=== PATIENT | female | born 1940 | race Caucasian/White ===

== ENCOUNTER 2018-11-22 06:42 | Emergency (ER) | payer MEDICARE ==
[~2018-11-22] VITALS: Ht 157.5 cm; Wt 71.7 kg
[~2018-11-22 06:42] MED LIST: ASPI-1169 PO; CLOP75TA15 PO; FLUT12AE7 IH; FORM12CA IH; IRBE150T28 PO; Nitroglycerin SL; RABE20TA18 PO; SIMV20TA2 PO
--- NOTE | 2018-11-22 06:46 | NUR ---
TECH AT BEDSIDE FOR EKG
--- NOTE | 2018-11-22 06:47 | NUR ---
PT [id number] C/O "FEELING ABD PAIN X1 YEAR. WORSENING [id number]. FEELING NAUSEOUS"-SOB NOTED. AOX4. RESP EVEN AND UNLABORED. VSS. FAMILY AT BEDSIDE. PT ON MONITOR IN BED 9. WILL CONTINUE TO MONITOR.
[2018-11-22] MEDS ORDERED: IRBE150T28 PO (06:53)
[2018-11-22] MEDS ORDERED: METO-356 PO (06:53)
[2018-11-22] MEDS ORDERED: AMLO2.5T4 PO (06:53)
--- NOTE | 2018-11-22 06:59 | NUR ---
RADIOLOGY AT BEDSIDE FOR XRAY
[2018-11-22] MEDS ORDERED: MORPHINE SULFATE INJ 2 MG/ML DISP.SYRIN IV ONE (07:00)
[2018-11-22] MEDS ORDERED: ONDANSETRON HCL/PF - ER 4 MG/2 ML VIAL IV ONE (07:00)
[2018-11-22] MEDS ORDERED: ONDANSETRON HCL/PF 4 MG/2 ML VIAL ONE (07:01)
[2018-11-22] MEDS ORDERED: MORPHINE SULFATE INJ 2 MG/ML DISP.SYRIN ONE (07:02)
--- NOTE | 2018-11-22 07:20 | NUR ---
REPORT GIVEN TO SHIVA HINDS FOR ZANE
[2018-11-22 07:30] LABS: BASOPHILS % (AUTO) 0.6 % (0.0-2.0); CALCIUM, SERUM 8.2 mg/dL (8.5-10.1); CARBON DIOXIDE 25 mmol/L (21-32); CHLORIDE 109 mmol/L (98-107); CREATININE 1.6 mg/dL (0.6-1.3); EOSINOPHILS % (AUTO) 2.7 % (0.0-6.0); GLUCOSE 102 mg/dL (74-106); HEMATOCRIT 30 % (33-45); HEMOGLOBIN 9.9 g/dL (11.5-14.8); LYMPHOCYTES % (AUTO) 15.1 % (20.0-44.0); MEAN CORPUSCULAR HGB CONC 33 g/dl (31.0-36.0); MEAN CORPUSCULAR VOLUME 88 fL (82-100); MONOCYTES # (AUTO) 0.4 /CMM (0.1-1.30); MONOCYTES % (AUTO) 6.8 % (2.0-12.0); NEUTROPHILS # (AUTO) 4.8 /CMM (1.8-8.9); NEUTROPHILS % (AUTO) 74.8 % (43.0-81.0); PLATELET COUNT (AUTO) 203 /CMM (150-450); POTASSIUM 4.3 mmol/L (3.5-5.1); RED BLOOD CELL COUNT(AUTO) 3.39 MIL/uL (4.0-5.2); SODIUM SERUM 141 mmol/L (136-145); UREA NITROGEN, BLOOD 33 mg/dL (7-18); WHITE BLOOD COUNT (AUTO) 6.5 K/uL (4.3-11.0)
[2018-11-22] MEDS ORDERED: METO25TA6 PO (08:22)
[2018-11-22] MEDS ORDERED: RABE20TA18 PO (08:22)
--- NOTE | 2018-11-22 08:44 | NUR ---
[facility] paged
--- NOTE | 2018-11-22 09:51 | NUR ---
PATIENT AND DAUGHTER STATED THEY WANT TO LEAVE AMA, EXPLAINED RISKS, BENEFITS AND ALTERNATIVES, STILL WANTS TO LEAVE AMA. PIV REMOVED, COPIES OF RESULTS GIVEN TO PATIENT REQUESTED. DR. BOBO AWARE. PATIENT SIGNED AMA FORM, ASSISTED TO WHEELCHAIR AND LEFT IN STABLE CONDITION.
[2018-11-22 09:56] VITALS: BP 143/65
== END 2018-11-22 09:58 | disposition left against medical advice (07) ==
LOC: ER 06:46
DX: R07.89 Other chest pain (principal); R10.13 Epigastric pain; I21.9 Acute myocardial infarction, unspecified; I10 Essential (primary) hypertension; F41.9 Anxiety disorder, unspecified; K21.9 Gastro-esophageal reflux disease without esophagitis; I45.10 Unspecified right bundle-branch block; Z98.890 Other specified postprocedural states; Z88.6 Allergy status to analgesic agent; Z79.82 Long term (current) use of aspirin; Z95.5 Presence of coronary angioplasty implant and graft
CPT/HCPCS: 36415; 71045; 80048; 84484; 85025; 93005 ×2; 96374; 96375; 99284; J2270; J2405

== ENCOUNTER 2024-08-29 08:28 | Inpatient (IN) | payer MEDICARE ==
[~2024-08-29] VITALS: Ht 157.5 cm; Wt 60.3 kg
[~2024-08-29 08:28] MED LIST changes: +AMLO2.5T4 PO; -FORM12CA IH; +METO25TA6 PO; -Nitroglycerin SL; -SIMV20TA2 PO
[2024-08-29 09:02] LABS: BASOPHILS % (AUTO) 0.5 % (0.0-2.0); EOSINOPHILS # (AUTO) 0.8 K/uL (0.0-0.7); EOSINOPHILS % (AUTO) 10.9 % (0.0-6.0); HEMATOCRIT 31 % (33-45); HEMOGLOBIN 10.3 g/dL (11.5-14.8); LYMPHOCYTES % (AUTO) 12.7 % (20.0-44.0); MEAN CORPUSCULAR HEMOGLOBIN 30 PG (26.0-33.0); MEAN CORPUSCULAR HGB CONC 34 g/dl (31.0-36.0); MEAN CORPUSCULAR VOLUME 90 fL (82-100); MONOCYTES # (AUTO) 0.6 K/uL (0.1-1.30); MONOCYTES % (AUTO) 7.3 % (2.0-12.0); NEUTROPHILS # (AUTO) 5.3 K/uL (1.8-8.9); NEUTROPHILS % (AUTO) 68.6 % (43.0-81.0); PLATELET COUNT (AUTO) 249 K/uL (150-450); RED BLOOD CELL COUNT(AUTO) 3.39 MIL/uL (4.0-5.2); RED CELL DISTRIBUTION WIDTH 13.8 % (11.5-15.0); WHITE BLOOD COUNT (AUTO) 7.7 K/uL (4.3-11.0)
[2024-08-29 09:12] LABS: CALCIUM, SERUM 8.4 mg/dL (8.5-10.1); CARBON DIOXIDE 23 mmol/L (21-32); CHLORIDE 109 mmol/L (98-107); CREATININE 2.7 mg/dL (0.6-1.3); GLUCOSE 127 mg/dL (74-106); POTASSIUM 4.3 mmol/L (3.5-5.1); SODIUM SERUM 143 mmol/L (136-145); UREA NITROGEN, BLOOD 59 mg/dL (7-18)
[2024-08-29 09:25] LABS: NT-PRO BNP 1892 pg/mL (0-125)
[2024-08-29] MEDS ORDERED: CARV6.252 PO (10:59)
[2024-08-29] MEDS ORDERED: CARV3.122 PO (10:59)
[2024-08-29] MEDS ORDERED: AMLO-212 PO (10:59)
[2024-08-29] MEDS ORDERED: FLUT200B IH (10:59)
[2024-08-29] MEDS ORDERED: ONDANSETRON HCL/PF 4 MG/2 ML VIAL ONE (11:09)
[2024-08-29] MEDS ORDERED: FAMOTIDINE/PF INJ 20 MG/2 ML VIAL IV ONE (11:09)
[2024-08-29] MEDS ORDERED: MORPHINE SULFATE INJ 2 MG/ML DISP.SYRIN ONE (11:09)
[2024-08-29] MEDS: MORPHINE SULFATE INJ 2 MG/ML DISP.SYRIN IV ONE (11:17)
[2024-08-29] MEDS: FAMOTIDINE/PF INJ 20 MG/2 ML VIAL IV ONE (11:18)
[2024-08-29] MEDS: ONDANSETRON HCL/PF 4 MG/2 ML VIAL IV ONE (11:18)
[2024-08-29] MEDS ORDERED: ACETAMINOPHEN 325 MG TABLET PO PRN (12:00)
[2024-08-29 13:19] LABS: INR 1.03 (0.91-1.10); PARTIAL THROMBOPLASTIN TIME 31.3 SEC (24.3-34.3); PROTHROMBIN TIME 10.9 SECS (9.2-11.1)
[2024-08-29] MEDS: IV NS 0.9% 1,000 ML IV PRN (13:54)
[2024-08-29] MEDS: ASPIRIN 81 MG TAB.CHEW PO SCH (13:55)
[2024-08-29] MEDS: ATORVASTATIN 10 MG TABLET PO SCH (13:55)
[2024-08-29 16:00] VITALS: BP 135/66; TEMP 98.1; O2SAT 96
[2024-08-29] MEDS: HEPARIN SODIUM, PORCINE 5000 UNITS/1 ML VIAL IV ONE (16:19)
[2024-08-29] MEDS: HEPARIN INFUSION/D5W 500 ML IV PRN (16:51)
[2024-08-29 20:00] VITALS: BP 131/89; TEMP 97.9; O2SAT 96
[2024-08-29 20:10] VITALS: BP 131/89; TEMP 97.9; O2SAT 99
[2024-08-29] MEDS ORDERED: HOME MED MISCELLANEOUS XX SCH (21:30)
[2024-08-29] MEDS: AMLODIPINE BESYLATE 5 MG TABLET PO SCH (22:10)
[2024-08-29] MEDS: CARVEDILOL 3.125 MG TABLET PO SCH (22:11)
[2024-08-30] VITALS: BP 139/60; TEMP 97.9; O2SAT 95
[2024-08-30 03:18] VITALS: BP 155/68; TEMP 98.2; O2SAT 98
[2024-08-30] MEDS: MORPHINE SULFATE INJ 2 MG/ML DISP.SYRIN IV PRN (03:32)
[2024-08-30] MEDS: ONDANSETRON HCL/PF 4 MG/2 ML VIAL IVP PRN (03:42)
[2024-08-30 07:32] LABS: INR 1.07 (0.91-1.10); PARTIAL THROMBOPLASTIN TIME 71.5 SEC (24.3-34.3); PROTHROMBIN TIME 11.3 SECS (9.2-11.1)
[2024-08-30 07:44] LABS: BASOPHILS # (AUTO) 0.1 K/uL (0.0-0.2); BASOPHILS % (AUTO) 0.8 % (0.0-2.0); EOSINOPHILS % (AUTO) 13.9 % (0.0-6.0); HEMATOCRIT 29 % (33-45); HEMOGLOBIN 9.9 g/dL (11.5-14.8); LYMPHOCYTES # (AUTO) 1.2 K/uL (0.8-4.8); MEAN CORPUSCULAR HEMOGLOBIN 31 PG (26.0-33.0); MEAN CORPUSCULAR HGB CONC 34 g/dl (31.0-36.0); MEAN CORPUSCULAR VOLUME 90 fL (82-100); MONOCYTES # (AUTO) 0.5 K/uL (0.1-1.30); MONOCYTES % (AUTO) 7.6 % (2.0-12.0); NEUTROPHILS # (AUTO) 4.4 K/uL (1.8-8.9); NEUTROPHILS % (AUTO) 60.7 % (43.0-81.0); PLATELET COUNT (AUTO) 221 K/uL (150-450); RED CELL DISTRIBUTION WIDTH 13.9 % (11.5-15.0); WHITE BLOOD COUNT (AUTO) 7.2 K/uL (4.3-11.0)
[2024-08-30 07:46] LABS: ALBUMIN 2.6 g/dL (3.4-5.0); CALCIUM, SERUM 7.7 mg/dL (8.5-10.1); CREATININE 2.5 mg/dL (0.6-1.3); POTASSIUM 4.5 mmol/L (3.5-5.1)
[2024-08-30 08:00] VITALS: BP 132/62; TEMP 98.1; O2SAT 95
[2024-08-30 08:04] LABS: BILIRUBIN,TOTAL 0.2 mg/dL (0.2-1.0); PHOSPHORUS 4.7 mg/dL (2.5-4.9); TOTAL PROTEIN, SERUM 5.7 g/dL (6.4-8.2)
[2024-08-30] MEDS: hydrALAZINE HCL 50 MG TABLET PO SCH (08:56)
[2024-08-30] MEDS: ACIPHEX PO SCH (08:57)
[2024-08-30] MEDS: CLOPIDOGREL BISULFATE 75 MG TABLET PO SCH (08:58)
[2024-08-30] MEDS ORDERED: CARVEDILOL 6.25 MG TABLET PO SCH (09:00)
[2024-08-30] MEDS: CARVEDILOL 12.5 MG TABLET PO SCH (09:15)
[2024-08-30 12:00] VITALS: BP 127/65; TEMP 97.9; O2SAT 95
[2024-08-30] MEDS: BUDESONIDE RESPULE INH 0.5 MG/2 ML AMPUL.NEB NEB SCH (15:50)
[2024-08-30 16:00] VITALS: BP 141/62; TEMP 98.1
[2024-08-30 16:36] LABS: APPEARANCE,URINE CLEAR (CLEAR); BILIRUBIN,URINE NEGATIVE (NEGATIVE); BLOOD, URINE NEGATIVE Ery/uL (NEGATIVE); COLOR,URINE YELLOW (YELLOW); KETONES,URINE NEGATIVE (NEGATIVE); LEUKOCYTE ESTERASE ,URINE TRACE (NEGATIVE); NITRITE, URINE NEGATIVE (NEGATIVE); PROTEIN,URINE TRACE mg/dl (NEGATIVE); UGLUCOSE NEGATIVE (NEGATIVE); UROBILINOGEN,URINE 0.2 EU/dL (0.2)
[2024-08-30 16:52] LABS: ADD URINE CULTURE YES; BACTERIA,URINE Few /HPF (None Seen); RBC,URINE 0-2 /HPF (0-2); SQUAMOUS EPITHELIAL CELL,UR Rare /HPF (None Seen); WBC,URINE 21-50 /HPF (0-3)
[2024-08-30 17:12] LABS: CREATININE, URINE 75.5 MG/DL (30.0-125.0)
[2024-08-30] MEDS: CARVEDILOL 6.25 MG TABLET PO SCH (17:13)
[2024-08-30] MEDS: CEFTRIAXONE 1 G in IV D5W 50 ML IV SCH (18:19)
[2024-08-30 19:05] LABS: EOSINOPHIL,URINE Rare
[2024-08-30 20:00] VITALS: BP 130/71; TEMP 98.2; O2SAT 99
[2024-08-31] VITALS: BP 139/66; TEMP 98.1; O2SAT 98
[2024-08-31 04:00] VITALS: BP 144/59; TEMP 97.5; O2SAT 99
[2024-08-31 07:23] LABS: BASOPHILS % (AUTO) 0.5 % (0.0-2.0); EOSINOPHILS # (AUTO) 0.9 K/uL (0.0-0.7); EOSINOPHILS % (AUTO) 12.8 % (0.0-6.0); HEMATOCRIT 30 % (33-45); HEMOGLOBIN 9.8 g/dL (11.5-14.8); LYMPHOCYTES # (AUTO) 1.1 K/uL (0.8-4.8); LYMPHOCYTES % (AUTO) 15.6 % (20.0-44.0); MEAN CORPUSCULAR HEMOGLOBIN 30 PG (26.0-33.0); MEAN CORPUSCULAR HGB CONC 33 g/dl (31.0-36.0); MEAN CORPUSCULAR VOLUME 91 fL (82-100); MONOCYTES # (AUTO) 0.6 K/uL (0.1-1.30); MONOCYTES % (AUTO) 7.9 % (2.0-12.0); NEUTROPHILS # (AUTO) 4.6 K/uL (1.8-8.9); NEUTROPHILS % (AUTO) 63.2 % (43.0-81.0); PLATELET COUNT (AUTO) 226 K/uL (150-450); RED BLOOD CELL COUNT(AUTO) 3.26 MIL/uL (4.0-5.2); WHITE BLOOD COUNT (AUTO) 7.2 K/uL (4.3-11.0)
[2024-08-31 07:43] LABS: ALBUMIN 2.7 g/dL (3.4-5.0); BILIRUBIN,TOTAL 0.2 mg/dL (0.2-1.0); CALCIUM, SERUM 7.8 mg/dL (8.5-10.1); CREATININE 2.4 mg/dL (0.6-1.3); MAGNESIUM 1.9 mg/dL (1.8-2.4); PHOSPHORUS 4.8 mg/dL (2.5-4.9); POTASSIUM 4.5 mmol/L (3.5-5.1)
[2024-08-31 08:00] VITALS: BP 131/86; TEMP 98; O2SAT 99
[2024-08-31 12:00] VITALS: BP 143/72; TEMP 98.2; O2SAT 94
[2024-09-02 07:11] LABS: PTH, INTACT 95 pg/mL (15-65)
[2024-09-03 14:10] LABS: *SPE ALBUMIN 2.7 g/dL (2.9-4.4); *SPE ALPHA-1-GLOBULIN 0.3 g/dL (0.0-0.4); *SPE ALPHA-2-GLOBULIN 0.9 g/dL (0.4-1.0); *SPE BETA GLOBULIN 0.7 g/dL (0.7-1.3); *SPE GLOBULIN, TOTAL 2.8 g/dL (2.2-3.9); *SPE M-SPIKE Not Observed g/dL (Not Observed); *SPE PROTEIN TOTAL 5.5 g/dL (6.0-8.5); *SPEGAMMA GLOBULIN 0.9 g/dL (0.4-1.8)
== END 2024-08-31 14:00 | disposition left against medical advice (07) | DRG 280 ==
LOC: ER 08:41 → TELE 11:38
PROVIDERS: ADMIT Nurse Practitioner Acute Care; ATTEND Nurse Practitioner Acute Care
DX: I21.4 Non-ST elevation (NSTEMI) myocardial infarction (principal); N17.0 Acute kidney failure with tubular necrosis; N18.4 Chronic kidney disease, stage 4 (severe); J98.11 Atelectasis; D68.69 Other thrombophilia; I25.10 Atherosclerotic heart disease of native coronary artery without angina pectoris; I12.9 Hypertensive chronic kidney disease with stage 1 through stage 4 chronic kidney disease, or unspecified chronic kidney disease; K21.9 Gastro-esophageal reflux disease without esophagitis; Z95.5 Presence of coronary angioplasty implant and graft; E78.5 Hyperlipidemia, unspecified; E66.9 Obesity, unspecified; F41.9 Anxiety disorder, unspecified; D64.9 Anemia, unspecified; Z99.3 Dependence on wheelchair; E83.9 Disorder of mineral metabolism, unspecified; I25.2 Old myocardial infarction; J98.4 Other disorders of lung; R63.4 Abnormal weight loss; Z68.24 Body mass index [BMI] 24.0-24.9, adult; R91.8 Other nonspecific abnormal finding of lung field
CPT/HCPCS: 36415; 71045-TC; 71250-TC; 76770-TC; 80048-TC; 80053-TC; 80061-TC; 81001; 82550-TC; 82570-TC; 83735-TC; 83880; 83970; 84100-TC; 84155; 84165; 84300-TC; 84484-TC; 85025-TC; 85610-TC; 85730-TC; 87086-TC; 93307-TC; 94799-TC; A4223; G0378; J0696; J1644; J2270; J2405; J3490; J7030; J7060